=== PATIENT | male | born 1960 | race Caucasian/White ===

== ENCOUNTER 2019-03-28 17:23 | Emergency (ER) | payer BC ==
[2019-03-28 17:41] VITALS: BP 127/90
--- NOTE | 2019-03-28 17:53 | EDM.PDOC ---
ED HPI GENERAL MEDICAL PROBLEM - General Chief Complaint: Abdominal Pain Stated Complaint: ABDOMINAL PAIN Time Seen by Provider: 03/28/19 17:30 Source of Information: Reports: Patient, RN Notes Reviewed History Limitations: Reports: No Limitations - History of Present Illness INITIAL COMMENTS - FREE TEXT/NARRATIVE: Patient is a 58-year-old male who presents to the ED for the evaluation of lower abdomen pain. The patient states that he has a history of diverticulitis , and this pain feels similar to the flare he had 3 years ago. He states this has been present for roughly 2-1/2 days now, where he feels the urge to have to defecate. He states that he is not able to go to the bathroom much, but however his stools are soft. There have been no blood in his stools. The patient states that he still has his appendix, but is not complaining of any constant abdominal pain. He states this is a waxing and waning pain in nature. He denies any nausea/vomiting/diarrhea, fevers, chest pain, or shortness of breath. He states he does not eat any aggravating foods that would be causing- like issues. He states that he had 2 tabs of hydrocodone left over from 3 years ago, and he did take this last night to provide him some sleep and it helped. He states he does not have any medical allergies. Lower Abdomen Pain Score (Numeric/FACES): 7 - Related Data Allergies Allergy/AdvReac Type Severity Reaction Status Date / Time No Known Allergies Allergy Verified 07/25/16 16:09 Home Meds: Home Meds Lansoprazole [Prevacid] 15 mg PO ASDIRECTED PRN 07/25/16 [History] Lisinopril [Prinivil] 1 tab PO DAILY 07/25/16 [History] Acetaminophen/HYDROcodone [[place] 325-5 MG] 1 tab PO Q6H PRN #28 tablet 03/28/19 [Rx] Amoxicillin/Potassium Clav [Augmentin 500-125 Tablet] 1 each PO TID #21 tablet 03/28/19 [Rx] Dicyclomine [Bentyl] 20 mg PO QID PRN #28 tablet 03/28/19 [Rx] Past Medical History Cardiovascular History: Reports: Hypertension Gastrointestinal History: Reports: Diverticulosis Social & Family History - Tobacco Use Smoking Status *Q: Current Every Day Smoker Years of Tobacco use: 40 Packs/Tins Daily: 0.2 - Caffeine Use Caffeine Use: Reports: Energy Drinks - Recreational Drug Use Recreational Drug Use: No ED ROS GENERAL - Review of Systems Review Of Systems: See Below Constitutional: Denies: Fever, Chills HEENT: Reports: No Symptoms Respiratory: Reports: No Symptoms Cardiovascular: Reports: No Symptoms Endocrine: Reports: No Symptoms GI/Abdominal: Reports: Abdominal Pain (Lower). Denies: Constipation, Diarrhea, Nausea, Vomiting : Reports: No Symptoms Musculoskeletal: Reports: No Symptoms Skin: Reports: No Symptoms Neurological: Reports: No Symptoms Psychiatric: Reports: No Symptoms Hematologic/Lymphatic: Reports: No Symptoms Immunologic: Reports: No Symptoms ED EXAM, GI/ABD - Physical Exam Exam: See Below Exam Limited By: No Limitations General Appearance: Alert, WD/WN, No Apparent Distress Eyes: Bilateral: Normal Appearance, EOMI Ears: Normal External Exam Nose: Normal Inspection Throat/Mouth: Normal Inspection, Normal Lips, Normal Teeth, Normal Gums, Normal Oropharynx, Normal Voice, No Airway Compromise Head: Atraumatic, Normocephalic Neck: Normal Inspection Respiratory/Chest: No Respiratory Distress, Lungs Clear, Normal Breath Sounds, No Accessory Muscle Use, Chest Non-Tender Cardiovascular: Normal Peripheral Pulses, Regular Rate, Rhythm, No Murmur GI/Abdominal Exam: Soft, No Distention, No Mass, Tender (suprapubic and LLQ), Abnormal Bowel Sounds (hypoactive BS) Extremities: Normal Inspection, Normal Capillary Refill Neurological: Alert, Oriented, Normal Cognition, No Motor/Sensory Deficits Psychiatric: Normal Affect, Normal Mood Skin Exam: Warm, Dry, Intact, Normal Color, No Rash Course - Vital Signs Last Recorded V/S: Last Vital Signs Temp 98.7 F 03/28/19 17:39 Pulse 98 03/28/19 17:39 Resp 20 03/28/19 17:39 BP 127/90 03/28/19 17:39 Pulse Ox 95 03/28/19 17:39 - Orders/Labs/Meds Labs: Laboratory Tests 03/28/19 03/28/19 03/28/19 Range/Units 18:00 18:00 18:01 WBC 13.90 H (4.23-9.07) K/mm3 RBC 4.60 L (4.63-6.08) M/mm3 Hgb 14.1 (13.7-17.5) gm/L Hct 41.5 (40.1-51.0) % MCV 90.2 (79.0-92.2) fl MCH 30.7 (25.7-32.2) pg MCHC 34.0 (32.2-35.5) g/dl RDW Std Deviation 42.7 (35.1-43.9) fL Plt Count 249 (163-337) K/mm3 MPV 9.7 (9.4-12.3) fl Neutrophils % (Manual) 72 H (40-60) % Band Neutrophils % 1 (0-10) % Lymphocytes % (Manual) 15 L (20-40) % Atypical Lymphs % 3 % Monocytes % (Manual) 8 (2-10) % Eosinophils % (Manual) 1 (0.8-7.0) % Basophils % (Manual) 0 L (0.2-1.2) Platelet Estimate Adequate Plt Morphology Comment Normal RBC Morph Comment Normal Sodium 136 (136-145) mEq/L Potassium 4.3 (3.5-5.1) mEq/L Chloride 102 (98-107) mEq/L Carbon Dioxide 21 (21-32) mEq/L Anion Gap 17.3 H (5-15) BUN 25 H (7-18) mg/dL Creatinine 1.5 H (0.7-1.3) mg/dL Est Cr Clr Drug Dosing 53.20 mL/min Estimated GFR (MDRD) 48 (>60) mL/min BUN/Creatinine Ratio 16.7 (14-18) Glucose 110 H (74-106) mg/dL Calcium 8.7 (8.5-10.1) mg/dL Total Bilirubin 0.8 (0.2-1.0) mg/dL AST 19 (15-37) U/L ALT 34 (16-63) U/L Alkaline Phosphatase 78 (46-116) U/L Total Protein 7.7 (6.4-8.2) g/dl Albumin 3.9 (3.4-5.0) g/dl Globulin 3.8 gm/dL Albumin/Globulin Ratio 1.0 (1-2) Urine Color Dark yellow (Yellow) Urine Appearance Clear (Clear) Urine pH 6.0 (5.0-8.0) Ur Specific [place] 1.025 (1.005-1.030) Urine Protein 1+ H (Negative) Urine Glucose (UA) Negative (Negative) Urine Ketones 2+ H (Negative) Urine Occult Blood Negative (Negative) Urine Nitrite Negative (Negative) Urine Bilirubin 1+ H (Negative) Urine Urobilinogen 0.2 (0.2-1.0) Ur Leukocyte Esterase Negative (Negative) Urine RBC 0-5 (0-5) /hpf Urine WBC 0-5 (0-5) /hpf Ur Epithelial Cells 0-5 (0-5) /hpf Urine Bacteria Moderate H (FEW) /hpf Urine Mucus Moderate H (FEW) /hpf - Re-Assessments/Exams Free Text/Narrative Re-Assessment/Exam: 03/28/19 17:54 Patient presents to the ED for the evaluation of abdominal pain. The patient states that this pain is very similar to his diverticulitis he has had in the past, I have ordered a CBC, CMP, and a UA for further evaluation. His symptoms and exam are fairly consistent with diverticulitis, I plan to start him on Augmentin, some tablets for pain, and Bentyl for the cramping. 03/28/19 18:52 Patient's labs are back, and are most consistent with a diverticulitis of sorts. I have provided patient with prescriptions for his diverticulitis. I have recommended that he is stick to a low fiber low residue diet, or even clear liquids for the next 24-48 hrs to make sure that he is on the right track to making himself feel better. Departure - Departure Time of Disposition: 18:32 Disposition: Home, Self-Care 01 Condition: Fair Clinical Impression: Diverticulitis - Discharge Information *PRESCRIPTION DRUG MONITORING PROGRAM REVIEWED*: No *COPY OF PRESCRIPTION DRUG MONITORING REPORT IN PATIENT LALA: No Prescriptions: Acetaminophen/HYDROcodone [[place] 325-5 MG] 1 tab PO Q6H PRN #28 tablet PRN Reason: Pain Amoxicillin/Potassium Clav [Augmentin 500-125 Tablet] 1 each PO TID #21 tablet Dicyclomine [Bentyl] 20 mg PO QID PRN #28 tablet PRN Reason: abdominal cramps Instructions: Diverticulitis, [id number] Referrals: Ben Jewell PA-C [Primary Care Provider] - Forms: ED Department Discharge Additional Instructions: You have been evaluated in the ED tonight for your abdominal pain. Although no imaging was done at this ED visit, it is likely that your symptoms are due to diverticulitis per year history and her laboratory evaluation. You have been provided with prescriptions for 1: Augmentin, please take one tablet 3 times daily for 7 days 2: Hydrocodone/acetaminophen 5/325mg, please take one tablet every 6 hours as needed for pain. 3: Bentyl, please take one tab 4 times daily as needed for abdominal cramping. These medications have been electronically sent to the [place] pharmacy located in the [facility]. Recommend that you stick to a clear liquid diet for the next 24-48 hours and advance to low residue (low fiber) as tolerated. Recommend that you have a colonoscopy within 6-8 weeks after resolution of symptoms. Please return to the ED if your symptoms should change or worsen.
== END 2019-03-28 19:00 | disposition home or self-care (01) ==
LOC: JD.ED 17:23
DX: K57.92 Diverticulitis of intestine, part unspecified, without perforation or abscess without bleeding (principal); F17.210 Nicotine dependence, cigarettes, uncomplicated; I10 Essential (primary) hypertension; Z79.899 Other long term (current) drug therapy
CPT/HCPCS: 36415; 80053; 81001; 85007; 85027; 99284

== ENCOUNTER 2022-07-21 12:13 | Emergency (ER) | payer BC ==
[2022-07-21 12:39] VITALS: BP 152/100; PULSE 109
[2022-07-21] MEDS ORDERED: Amoxicillin/Clavulanate K 875-125 MG Tab PO ONE (12:48)
[2022-07-21] MEDS ORDERED: Diphtheria,Pertussis(Acell),Tetanus Vaccine 0.5 ML Syringe IM ONE (12:48)
== END 2022-07-21 14:40 | disposition home or self-care (01) ==
LOC: JD.ED 12:13
DX: S61.451A Open bite of right hand, initial encounter (principal); I10 Essential (primary) hypertension; Z23 Encounter for immunization; W54.0XXA Bitten by dog, initial encounter
CPT/HCPCS: 73130; 90471; 90715; 99283; A9270

== ENCOUNTER 2024-04-06 12:07 | Emergency (ER) | payer BC ==
[2024-04-06 14:23] LABS: BASOPHILS PERCENT AUTO 0.2 % (0.0-1.0); EOSINOPHILS ABSOLUTE AUTO 0.1 K/mm3 (0.0-0.4); EOSINOPHILS PERCENT AUTO 0.5 % (0.0-6.0); HEMATOCRIT 45.1 % (42.0-52.0); HEMOGLOBIN 15.6 gm/dl (14.0-18.0); IMMATURE GRAN ABSOLUTE AUTO 0.06 K/mm3 (0.00-0.05); IMMATURE GRAN PERCENT AUTO 0.4 % (0.0-0.4); LYMPHOCYTES ABSOLUTE AUTO 1.6 K/mm3 (1.0-4.8); LYMPHOCYTES PERCENT AUTO 10.8 % (24.0-44.0); MEAN CORPUSCULAR HEMOGLOBIN 31.5 pg (28.0-32.0); MEAN CORPUSCULAR HGB CONC 34.6 g/dl (32.0-36.0); MEAN CORPUSCULAR VOLUME 90.9 fl (83.0-99.0); MEAN PLATELET VOLUME 9.4 fl (9.4-12.4); MONOCYTES ABSOLUTE AUTO 1.2 K/mm3 (0.0-0.8); MONOCYTES PERCENT AUTO 8.3 % (0.0-8.0); NEUTROPHILS PERCENT AUTO 79.8 % (41.0-71.0); PLATELET COUNT,PLT 249 K/mm3 (150-400); RED BLOOD CELL COUNT 4.96 M/mm3 (4.52-5.90); WHITE BLOOD CELL COUNT,WBC 14.98 K/mm3 (3.9-11.3)
[2024-04-06 14:37] LABS: A/G RATIO 0.9 (1-2); ALBUMIN 3.8 g/dl (3.4-5.0); ANION GAP 15.3 (5-15); BILIRUBIN TOTAL 0.9 mg/dL (0.2-1.0); C-REACTIVE PROTEIN 10.3 mg/dL (<0.30); CALCIUM 8.9 mg/dL (8.5-10.1); CREATININE 1.4 mg/dL (0.7-1.3); EST CRCL DRUG DOSING (CG) 53.61 mL/min; POTASSIUM,K 4.3 mEq/L (3.5-5.1)
[2024-04-06] MEDS: Iopamidol 612 MG/ML 100 ML Bottle IVPUSH ONE (14:47)
[2024-04-06] MEDS: Sodium Chloride 0.9% 10 ML Syringe FLUSH ONE (14:47)
[2024-04-06] MEDS: Lactated Ringers 1,000 ML IV ONE (14:51)
[2024-04-06] MEDS: Ondansetron 4 MG/2 ML SDV IVPUSH ONE (14:51)
[2024-04-06] MEDS: oxyCODONE 5 MG Tab PO ONE (16:34)
[2024-04-06] MEDS: Amoxicillin/Clavulanate K 875-125 MG Tab PO ONE ×2 (16:34)
[2024-04-06] MEDS: Dicyclomine 10 MG Cap PO ONE (16:35)
[2024-04-06 17:35] VITALS: BP 149/89; PULSE 79
== END 2024-04-06 16:39 | disposition home or self-care (01) ==
LOC: JD.ED 12:07
DX: K57.32 Diverticulitis of large intestine without perforation or abscess without bleeding (principal); I10 Essential (primary) hypertension; F17.210 Nicotine dependence, cigarettes, uncomplicated; Z86.16 Personal history of COVID-19; Z79.899 Other long term (current) drug therapy
CPT/HCPCS: 36415; 74177; 74177-26; 80053; 83690; 85025; 86140; 96361; 96374; 99284; 99284-25; A9270-GY; J2405; J3490; J7120; Q9967